=== PATIENT | male | born 1965 | race African-American/Black ===

== ENCOUNTER 2019-09-04 22:29 | Emergency (ER) | payer OTHER ==
--- NOTE | 2019-09-04 23:44 | ER Document Report ---
ED Blood Pressure Problem - General Chief Complaint: High Blood Pressure Stated Complaint: HIGH BLOOD PRESSURE Time Seen by Provider: 09/04/19 23:28 Primary Care Provider: PB KUMAR MD [ACTIVE STAFF] - Follow up in 1 week GARY DAWN MD [COMMUNITY BASED STAFF] - Follow up in 1 week Notes: Patient is a 54 year old male that comes to the emergency department for chief complaint of concerns about high blood pressure. He states that he has been checking his blood pressure for the past 3 days and his blood pressure has been averaging between 130s and 180 systolic. He states last time he got a bad headache from it as well. He states he is gained weight and gotten somewhat out of shape from previously, he also admits to poor sleep when I asked, he denies frequent caffeine, he denies previously being treated for his blood pressure. He denies chest pain, current headache, or any other complaints except frequent urination. Patient states he thinks his frequent urination is because he has been drinking tons of water because he thought it would help his blood pressure. He is on no daily medications. He denies smoking, frequent alcohol, or recreational drugs. - Related Data Allergies/Adverse Reactions: No Known Allergies Allergy (Unverified 09/04/19 22:49) Past Medical History - General Information source: Patient - Social History Smoking Status: Never Smoker Frequency of alcohol use: Rare Drug Abuse: None Lives with: Family Family History: Reviewed & Not Pertinent Patient has suicidal ideation: No Patient has homicidal ideation: No Surgical Hx: Negative - Immunizations Immunizations up to date: Yes Hx Diphtheria, Pertussis, Tetanus Vaccination: Yes Review of Systems - Review of Systems Constitutional: No symptoms reported EENT: No symptoms reported Cardiovascular: See HPI Respiratory: No symptoms reported Gastrointestinal: No symptoms reported Genitourinary: No symptoms reported Male Genitourinary: No symptoms reported Musculoskeletal: No symptoms reported Skin: No symptoms reported Hematologic/Lymphatic: No symptoms reported Neurological/Psychological: No symptoms reported Physical Exam - Vital signs Vitals: Temp Pulse Resp BP Pulse Ox 98.9 F 63 16 151/96 H 100 09/04/19 22:39 09/04/19 22:39 09/04/19 22:39 09/04/19 22:39 09/04/19 22:39 - Notes Notes: GENERAL: Alert, interacts well. No acute distress. HEAD: Normocephalic, atraumatic. EYES: Pupils equal, round, and reactive to light. Extraocular movements intact. ENT: Oral mucosa moist, tongue midline. Oropharynx unremarkable. Airway patent. NECK: Full range of motion. Supple. Trachea midline. No lymphadenopathy. LUNGS: Clear to auscultation bilaterally, no wheezes, rales, or rhonchi. No respiratory distress. Non-tender chest wall. HEART: Regular rate and rhythm. No murmur ABDOMEN: Soft, non-tender. Non-distended. Bowel sounds present in all 4 quadrants. GENITOURINARY: Deferred EXTREMITIES: Moves all 4 extremities spontaneously. No edema, normal radial and dorsalis pedis pulses bilaterally. No cyanosis. BACK: no cervical, thoracic, lumbar midline tenderness. No saddle anesthesia, normal distal neurovascular exam. Moves all extremities in full range of motion. NEUROLOGICAL: Alert and oriented x3. Normal speech. Cranial nerves II through XII grossly intact. Strength 5/5 in all extremities. PSYCH: Patient speaks persistently and appears slightly anxious SKIN: Warm, dry, normal turgor. No rashes or lesions noted. Course - Re-evaluation Re-evalutation: Patient asymptomatic on my evaluation. No chest pain, no current headache, no neurological deficits. Blood pressure is elevated, patient did review with me his previous blood pressures in the range from 130s to proximately 180s systolic. Patient has not been treated for hypertension in the past. Because of patient's frequent urination blood chemistry was checked but this was unremarkable, I suspect it was from him drinking extra fluids. I discussed with patient. Patient will record his blood pressures for a full week and take this to primary care, he is concerned he will not be able to follow-up and would like a prescription, he will be provided with amlodipine at a lower dose although I discussed with him that unless his blood pressures were consistently above 140 he most likely not require this. I discussed return precautions in detail. Patient states appreciation and agreement with plan. Asymptomatic, stable, well-appearing at time of discharge. - Vital Signs Vital signs: Temp Pulse Resp BP Pulse Ox 98.6 F 65 14 127/87 H 100 09/05/19 02:14 09/05/19 02:14 09/05/19 02:14 09/05/19 02:14 09/05/19 02:14 - Laboratory Result Diagrams: 09/05/19 00:52 Laboratory results interpreted by me: 09/05/19 00:52 Carbon Dioxide 31 H Discharge - Discharge Clinical Impression: Elevated blood pressure reading Condition: Stable Disposition: HOME, SELF-CARE Additional Instructions: Your work-up and evaluation is reassuring. Your blood chemistry was normal. I recommend that you complete the 1 week of blood pressure measurements, check your blood pressure 2-3 times a day and record this number, follow-up with primary care for additional management of your blood pressure. If your blood pressure remains elevated you have been prescribed amlodipine to start in case there is a delay in being seen by primary care, however you must see them for additional management of this. Return for any concerning symptoms including severe headache, chest pain, or any other concerning or worsening symptoms. Prescriptions: Amlodipine Besylate [Norvasc 5 mg Tablet] 5 mg PO DAILY #30 tablet Forms: Return to Work Referrals: GARY DAWN MD [COMMUNITY BASED STAFF] - Follow up in 1 week PB KUMAR MD [ACTIVE STAFF] - Follow up in 1 week
[2019-09-05 01:19] LABS: ANION GAP 5 (5-19); BLOOD UREA NITROGEN 10 mg/dL (7-20); CALCIUM 9.6 mg/dL (8.4-10.2); CARBON DIOXIDE 31 mmol/L (22-30); CHLORIDE 103 mmol/L (98-107); GLUCOSE 107 mg/dL (75-110); POTASSIUM 4.5 mmol/L (3.6-5.0)
[2019-09-05 02:16] VITALS: BP 127/87
== END 2019-09-05 02:16 | disposition home or self-care (01) ==
LOC: ER 22:29
DX: R03.0 Elevated blood-pressure reading, without diagnosis of hypertension (principal); R63.5 Abnormal weight gain; R35.0 Frequency of micturition
CPT/HCPCS: 36415; 80048; 99283